=== PATIENT | female | born 1940 | race Hispanic/Latino ===

== ENCOUNTER → 2018-05-25 | Outpatient (CLI) | payer MEDICARE ==
--- NOTE | 2018-05-25 13:19 | Diagnostic Imaging Report ---
Left knee MRI without contrast. History: Lateral meniscus tear. Knee pain. Pain worse with walking. Arthritis. Comparison: None. Technique: Multiplanar multi-sequence MRI of the knee without contrast. Findings: Medial compartment: There is a complex tear involving the posterior horn and body segments of the medial meniscus. Meniscal tissue is displaced to the periphery. Medial compartmental articular cartilage surfaces are thinned with regions of full-thickness articular cartilage loss. There are peripheral marginal osteophytes. The medial collateral complex is intact. Lateral compartment: There is a complex lateral meniscus tear involving the posterior horn and body segments. Meniscal tissue is displaced to the periphery. The lateral compartmental articular cartilage surfaces are thinned with regions of full-thickness articular cartilage loss. There is mild underlying bone marrow edema. There are peripheral marginal osteophytes. The lateral collateral ligament complex is intact. Intercondylar notch: The ACL and PCL are intact. Patellofemoral compartment: The articular cartilage surfaces are thinned with regions of full-thickness articular cartilage loss and underlying bone marrow edema. Extensor mechanism: The quadriceps and patellar tendons are normal. Other findings: There is a joint effusion and synovitis. There is no acute fracture, subluxation or avascular necrosis. 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 Complex medial meniscus tear with less severe degenerative arthrosis in the medial compartment of the knee. Regions of full-thickness articular cartilage loss in the patellofemoral compartment with underlying bone marrow edema. Signed by: Dr. Michael Longoria M.D. on 05/25/2018 1:16 PM
== END ==
LOC: MRI 10:32
PROVIDERS: ATTEND Specialist
DX: S83.282A Other tear of lateral meniscus, current injury, left knee, initial encounter (principal)

== ENCOUNTER 2022-05-01 13:22 | Inpatient (IN) | payer MEDICARE ==
[~2022-05-01] VITALS: Ht 152.4 cm; Wt 78.0 kg
[2022-05-01 14:02] VITALS: BP 121/67
[2022-05-01 14:11] VITALS: BP 121/67
[2022-05-01] MEDS ORDERED: DOXYCYCLINE PO (14:25)
[2022-05-01] MEDS ORDERED: DICLOFENAC SODIUM TOP (14:25)
[2022-05-01] MEDS ORDERED: CLOBETASOL1 EA/15 GM PO (14:25)
[2022-05-01] MEDS ORDERED: NAPROXEN PO (14:25)
[2022-05-01 14:30] VITALS: BP 121/67
[2022-05-01] MEDS: Clindamycin INJ 300 MG/50 ML 50 ML IV SCH ×2 (15:05→22:53)
[2022-05-01] MEDS ORDERED: SODIUM CHLORIDE 0.9% 250ML 250 ML ONE (15:10)
[2022-05-01] MEDS: ACETAMINOPHEN 325 MG TAB PO PRN ×2 (15:30→22:53)
[2022-05-01] MEDS ORDERED: ONDANSETRON HCL INJ 2MG/ML 2ML 2 MG/ML VIAL IV PRN (15:30)
[2022-05-01 15:49] VITALS: BP 101/56
[2022-05-01 15:56] LABS: BASOPHILS # (AUTO) 0.1 (0.0-0.1); BASOPHILS % 0.3 % (0.0-1.0); EOSINOPHILS # (AUTO) 0.1 (0.0-0.4); EOSINOPHILS % 0.6 % (0.0-6.0); HEMATOCRIT 36.1 % (34.2-44.1); HEMOGLOBIN 11.7 g/dL (12.0-16.0); LYMPHOCYTES # (AUTO) 1.5 (1.0-3.2); MEAN CORPUSCULAR HEMOGLOBIN 30.1 pg (28-32); MEAN CORPUSCULAR HGB CONC 32.4 g/dL (31-35); MEAN CORPUSCULAR VOLUME 92.8 fL (81-99); MONOCYTES # (AUTO) 1.4 (0.2-0.8); MONOCYTES % 6.6 % (4.4-11.3); NEUTROPHILS # (AUTO) 17.5 (2.1-6.9); NEUTROPHILS % 84.1 % (38.7-80.0); PLATELET COUNT 246 x10e3/uL (140-360); RED BLOOD COUNT 3.89 x10e6/uL (3.6-5.1); RED CELL DISTRIBUTION WIDTH 13.4 % (11.7-14.4)
[2022-05-01 16:14] LABS: ALBUMIN 2.9 g/dL (3.5-5.0); ALBUMIN/GLOBULIN RATIO 0.8 (0.8-2.0); ANION GAP 12.6 mmol/L (8-16); CALCIUM 8.5 mg/dL (8.4-10.2); CREATININE, SERUM 0.78 mg/dL (0.57-1.11); POTASSIUM 4.6 mmol/L (3.5-5.1)
[2022-05-01 16:42] LABS: CHOL/HDL RATIO 2.9 (3.0-3.6)
[2022-05-01 20:00] VITALS: BP 107/57
[2022-05-01 20:42] VITALS: BP 107/57
[2022-05-02] VITALS (7 sets, daily range): BP systolic 94–143; BP diastolic 47–77
[2022-05-02] MEDS: Clindamycin INJ 300 MG/50 ML 50 ML IV SCH ×3 (05:45→20:59)
[2022-05-02] MEDS: ACETAMINOPHEN 325 MG TAB PO PRN ×2 (09:12→21:13)
[2022-05-02] MEDS ORDERED: CLOBETASOL 0.05% CREAM 45GMS 1 EA/15 GM TUBE TOP SCH (12:45)
[2022-05-02] MEDS: CLOBETASOL PROPIONATE 0.05% CRM 15 GM TUBE TOP SCH (17:50)
[2022-05-03] VITALS (8 sets, daily range): BP systolic 108–153; BP diastolic 58–83
[2022-05-03] MEDS: Clindamycin INJ 300 MG/50 ML 50 ML IV SCH ×3 (05:47→21:49)
[2022-05-03] MEDS: CLOBETASOL PROPIONATE 0.05% CRM 15 GM TUBE TOP SCH ×2 (09:30→17:50)
[2022-05-03] MEDS ORDERED: Vancomycin IV 1 GM in SODIUM CHLORIDE 0.9% 250ML 250 ML IV ONE (10:00)
[2022-05-03 10:36] LABS: BASOPHILS # (AUTO) 0.1 (0.0-0.1); BASOPHILS % 0.6 % (0.0-1.0); EOSINOPHILS # (AUTO) 0.2 (0.0-0.4); EOSINOPHILS % 1.2 % (0.0-6.0); HEMATOCRIT 37.8 % (34.2-44.1); HEMOGLOBIN 12.1 g/dL (12.0-16.0); LYMPHOCYTES # (AUTO) 1.3 (1.0-3.2); LYMPHOCYTES % 10.8 % (18.0-39.1); MEAN CORPUSCULAR HEMOGLOBIN 29.8 pg (28-32); MEAN CORPUSCULAR VOLUME 93.1 fL (81-99); MONOCYTES # (AUTO) 1.1 (0.2-0.8); MONOCYTES % 8.5 % (4.4-11.3); NEUTROPHILS # (AUTO) 9.5 (2.1-6.9); NEUTROPHILS % 77.2 % (38.7-80.0); PLATELET COUNT 321 x10e3/uL (140-360); RED BLOOD COUNT 4.06 x10e6/uL (3.6-5.1); RED CELL DISTRIBUTION WIDTH 13.3 % (11.7-14.4)
[2022-05-03 10:55] LABS: ANION GAP 13.2 mmol/L (8-16); CALCIUM 8.7 mg/dL (8.4-10.2); CREATININE, SERUM 0.7 mg/dL (0.57-1.11); POTASSIUM 4.2 mmol/L (3.5-5.1)
[2022-05-03] MEDS ORDERED: ATENOLOL50 MG PO (20:00)
[2022-05-03] MEDS: DOCUSATE SODIUM 100 MG CAP PO PRN (20:20)
[2022-05-04] VITALS: BP 125/61
[2022-05-04 04:00] VITALS: BP 154/85
[2022-05-04] MEDS: Clindamycin INJ 300 MG/50 ML 50 ML IV SCH (05:55)
[2022-05-04] MEDS: DOCUSATE SODIUM 100 MG CAP PO PRN (05:58)
[2022-05-04 07:55] VITALS: BP 137/66
[2022-05-04 08:51] VITALS: BP 137/66
[2022-05-04] MEDS: CLOBETASOL PROPIONATE 0.05% CRM 15 GM TUBE TOP SCH (09:43)
[2022-05-04] MEDS: ACETAMINOPHEN 325 MG TAB PO PRN (09:46)
[2022-05-04] MEDS ORDERED: Vancomycin IV 1 GM in SODIUM CHLORIDE 0.9% 250ML 250 ML IV ONE (10:00)
[2022-05-04] MEDS ORDERED: CLINDAMYCIN HC300 MG PO (10:00)
[2022-05-04] MEDS ORDERED: ONDANSETRON HCL 4 MG ORAL DISINTEGRATING TAB PO PRN (11:15)
[2022-05-04 11:40] VITALS: BP 122/58
== END 2022-05-04 13:37 | disposition home or self-care (01) | DRG 603 ==
LOC: MED/SURG3 13:33
PROVIDERS: ADMIT Internal Medicine; ATTEND Internal Medicine
DX: L03.012 Cellulitis of left finger (principal); L03.114 Cellulitis of left upper limb; E66.9 Obesity, unspecified; Z68.33 Body mass index [BMI] 33.0-33.9, adult; R73.03 Prediabetes; L30.9 Dermatitis, unspecified; I10 Essential (primary) hypertension; Z88.2 Allergy status to sulfonamides; Z88.8 Allergy status to other drugs, medicaments and biological substances; Z90.49 Acquired absence of other specified parts of digestive tract; Z20.822 Contact with and (suspected) exposure to COVID-19
CPT/HCPCS: 36415; 80048; 80053; 80061; 83036; 85025; J3370; J7050